=== PATIENT | male | born 1950 ===

== ENCOUNTER 2017-12-03 08:40 | Outpatient (CLI) | payer BC ==
--- NOTE | 2017-12-03 09:45 | ULT ---
HEPATIC ULTRASOUND WITH DUPLEX EVALUATION: INDICATION: Abnormal LFTs. TECHNIQUE: Martinez scale, color Doppler, and spectral Doppler images were obtained of the right upper quadrant, spl een, and hepatic vasculature. No comparisons are available. FINDINGS: The liver has a coarse echotexture and diffuse increased echogenicity. The liver is enlarged measuri ng 18.6 cm in its greatest longitudinal dimension. Appropriate hepatopetal flow is seen within the p ortal vein, hepatic artery, and splenic vein. Appropriate flow is seen within the splenic artery and hepatic veins. Appropriate flow is seen within the aorta. There is a focal well-circumscribed hypoechoic lesion seen within the anterior right hepatic lobe gold suring 5 x 5 mm. The lesion demonstrates some posterior acoustic wall enhancement but does demonstra te some internal echogenicity. This cannot be definitively confirmed as a hepatic cyst. The spleen is normal in size measuring 9.9 x 5 cm. There is a small granuloma within the spleen. Th e right kidney is within normal limits. The visualized gallbladder was unremarkable. The common maria r e duct measured 6.7 mm. IMPRESSION: 1. Diffuse increased echogenicity of the liver consistent with fatty infiltration. There is mild he patomegaly. Small hypoechoic well circumscribed lesion with some mild internal echogenicity with yana e acoustic enhancement of the posterior wall suspicious for a small cyst. Would recommend sonographi c followup in 3 months to document stability. 2. Appropriate hepatopetal flow is seen within the hepatic vasculature. POS: [facility]
== END 2017-12-03 08:41 | disposition home or self-care (01) ==
LOC: SCSULT 08:40
PROVIDERS: ATTEND Internal Medicine Gastroenterology
DX: R94.5 Abnormal results of liver function studies (principal); R16.0 Hepatomegaly, not elsewhere classified; R93.8 Abnormal findings on diagnostic imaging of other specified body structures; Z86.010 Personal history of colon polyps
CPT/HCPCS: 36415; 76705; 80053; 80074; 82103; 82390; 82550; 82728; 83516; 85025; 86038; 86225

== ENCOUNTER 2018-03-28 11:24 | Emergency (ER) | payer BC ==
[~2018-03-28 11:24] MED LIST: Iopamidol 370 76% 50 ML VIAL FS ONE
[2018-03-28] MEDS ORDERED: Morphine 4 MG/ML VIAL ONE (11:50)
[2018-03-28 12:30] LABS: Band 9 % (5-11); Hemoglobin 16.5 g/dL (14.0-18.0); Lymphocytes 8 % (21-51); MDiff Complete? YES; Mean Corpuscular HGB CONC 34.2 g/dL (32.0-36.0); Mean Corpuscular Hemoglobin 29.9 pg (27.0-31.0); Mean Corpuscular Volume 87.5 fL (78.0-98.0); Mean Platelet Volume 6.7 fL (7.4-10.4); Monocytes 2 % (0-10); Neutrophil 80 % (42-75); PLT Morphology Comment Appears Adequate; Platelet Count 187 thou/uL (130-400); RBC Distribution Width 10.8 % (11.5-14.5); Red Blood Cell (RBC) Count 5.52 mill/uL (4.70-6.10); White Blood Cell (WBC) Count 10.8 thou/uL (4.8-10.8)
[2018-03-28 12:35] LABS: ALT (SGPT) 74 U/L (8-55); AST (SGOT) 31 U/L (5-34); Albumin 4.8 g/dL (3.4-4.8); Alkaline Phosphatase 35 U/L (40-150); Anion Gap 17 mmol/L (10-20); BUN (Urea Nitrogen) 14 mg/dL (8.4-25.7); Bilirubin, Total 0.7 mg/dL (0.2-1.2); Calc. Creatinine Clearance 0 mL/min (70-130); Calcium 10.3 mg/dL (7.8-10.44); Carbon Dioxide 23 mmol/L (23-31); Chloride 98 mmol/L (98-107); Estimated GFR-MDRD 58; Globulin 2.8 g/dL (2.4-3.5); Glucose 150 mg/dL (80-115); Lipase 30 U/L (8-78); Potassium 3.8 mmol/L (3.5-5.1); Protein, Total 7.6 g/dL (5.8-8.1); Sodium 134 mmol/L (136-145)
[2018-03-28 13:39] LABS: Lactic Acid 1.6 mmol/L (0.5-2.2)
--- NOTE | 2018-03-28 14:07 | CT ---
CT ABDOMEN AND PELVIS WITH CONTRAST: Date: 03/28/18 HISTORY: Abdominal pain. COMPARISON: CT from 2013. FINDINGS: Lung bases are clear. No pericardial effusion. Subtle hypodensities present in hepatic segment 8, too small to fully characterize, although statisti yuly likely a cyst. The spleen, pancreas, and adrenal glands are all unremarkable. The aorta is tortuous without focal aneurysmal dilatation. Moderate diverticular disease of the sigmo id colon without active current inflammation. The appendix is mildly prominent in this patient, although there is no periappendiceal edema or infla mmation, and there are no appendicoliths. This is likely a normal variant in this patient. No hydronephrosis. Prostate is enlarged. Urinary bladder is unremarkable. Moderate degenerative changes lower lumbar spine. IMPRESSION: 1. No acute inflammatory process in the abdomen or pelvis. 2. Extensive diverticular disease without active current inflammation. POS: [facility]
== END 2018-03-28 13:49 | disposition home or self-care (01) ==
LOC: SCSER 11:24
DX: K52.9 Noninfective gastroenteritis and colitis, unspecified (principal); I10 Essential (primary) hypertension; Z79.899 Other long term (current) drug therapy
CPT/HCPCS: 74177; 80053; 83605; 83690; 85025; 93005; 96374; J2270

== ENCOUNTER 2018-08-06 09:43 | Outpatient (CLI) | payer BC ==
--- NOTE | 2018-08-06 11:52 | RAD ---
RIGHT KNEE FOUR VIEWS: HISTORY: Severe knee pain for the past week. FINDINGS: Four views of the right knee show no evidence of acute fracture or dislocation. No knee effusion is seen. No significant degenerative changes are present. There is prominent calcification along the i nsertion of the patellar tendon into the tibia, with overlying soft tissue swelling. IMPRESSION: 1. No evidence of acute osseous abnormality. 2. Patellar tendon enthesopathy at its insertion into the tibia. POS: [facility]
== END 2018-08-06 09:44 | disposition home or self-care (01) ==
LOC: SCSRAD 09:43
PROVIDERS: ATTEND Internal Medicine
DX: M25.561 Pain in right knee (principal); M76.51 Patellar tendinitis, right knee